=== PATIENT | male | born 1995 | race Caucasian/White ===

== ENCOUNTER 2020-10-31 09:51 | Emergency (ER) | payer MEDICAID ==
--- NOTE | 2020-10-31 10:19 | EDM.PDOC ---
ED HPI GENERAL MEDICAL PROBLEM - General Stated Complaint: SOMETHING IN EYE Time Seen by Provider: 10/31/20 10:00 Source of Information: Reports: Patient History Limitations: Reports: No Limitations - History of Present Illness INITIAL COMMENTS - FREE TEXT/NARRATIVE: Patient presented to the ED because of of saw dust on his rt eye. 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 Right Eye Pain Score (Numeric/FACES): 4 - Related Data Allergies Allergy/AdvReac Type Severity Reaction Status Date / Time No Known Allergies Allergy Verified 10/31/20 11:49 Home Meds: Home Meds NK [No Known Home Meds] 10/31/20 [History] ED ROS GENERAL - Review of Systems Review Of Systems: See Below Constitutional: Reports: No Symptoms HEENT: Reports: No Symptoms Respiratory: Reports: No Symptoms Cardiovascular: Reports: No Symptoms Endocrine: Reports: No Symptoms GI/Abdominal: Reports: No Symptoms : Reports: No Symptoms Musculoskeletal: Reports: No Symptoms Skin: Reports: No Symptoms Neurological: Reports: No Symptoms ED EXAM GENERAL W FULL EYE - Physical Exam Exam: See Below Exam Limited By: No Limitations General Appearance: Alert, No Apparent Distress Eye Exam: Right Eye: Conjunctival Injection, Bilateral Eye: PERRL Ears: Normal External Exam, Normal Canal Nose: Normal Inspection, Normal Mucosa, No Blood Throat/Mouth: Normal Inspection, Normal Lips, Normal Teeth Head: Atraumatic, Normocephalic Neck: Normal Inspection, Supple, Non-Tender Respiratory/Chest: No Respiratory Distress, Lungs Clear Cardiovascular: Normal Peripheral Pulses, Regular Rate, Rhythm, No Edema GI/Abdominal: Normal Bowel Sounds, Soft, Non-Tender, No Organomegaly Course - Vital Signs Text/Narrative:: Procedure: Tetracaine eye drops was instilled on the R eye then stained with fluorescein. There are saw dust particles at the 3 and 6 O'clock position. The right eye was then flashed with an ophthalmic solution. Last Recorded V/S: Last Vital Signs Temp 37.6 C 10/31/20 09:55 Pulse 111 H 10/31/20 09:55 Resp 16 10/31/20 09:55 BP 148/100 H 10/31/20 09:55 Pulse Ox 99 10/31/20 09:55 Departure - Departure Time of Disposition: 10:20 Disposition: Home, Self-Care 01 Condition: Good Clinical Impression: Foreign body of right eye - Discharge Information Instructions: Eye Foreign Body, [id number] Referrals: PCP,None [Primary Care Provider] - Forms: ED Department Discharge Additional Instructions: Please red discharge instructions on foreign body-eye Do not rub your eyes, it will make it swell which is causing the pain Apply ice pack Follow up as needed Sepsis Event Note (ED) - Focused Exam Vital Signs: Vital Signs Temp Pulse Resp BP Pulse Ox 10/31/20 09:55 37.6 C 111 H 16 148/100 H 99
== END 2020-10-31 10:25 | disposition home or self-care (01) ==
LOC: FB.ED 09:51
DX: T15.91XA Foreign body on external eye, part unspecified, right eye, initial encounter (principal)
CPT/HCPCS: 99283

== ENCOUNTER 2021-04-11 20:36 | Emergency (ER) | payer MEDICAID ==
--- NOTE | 2021-04-11 20:54 | EDM.PDOCBH ---
ED HPI GENERAL MEDICAL PROBLEM - General Time Seen by Provider: 04/11/21 20:40 Source of Information: Reports: Patient, Old Records, Police History Limitations: Reports: Altered Mental Status, Combative/Threatening - History of Present Illness INITIAL COMMENTS - FREE TEXT/NARRATIVE: Kendrick was brought by the ambulance and law enforcement, after he sustained self- inflicted cuts to the left forearm. These were NOT in attempts to either harm himself but rather attract attention. He states that his aunt refused to give him back his rings/jewelry, and he did this(cutting) to prove a point. He also endorses that he been off his medications for 2 days. He is a very poor historian,appearing to be a needing to be constantly redirected. He does have a history of psychoactive substance abuse disorder, ADHD, and anxiety. He denies u se of drugs or any use of alcohol tonight. L upper forearm Pain Score (Numeric/FACES): 3 - Related Data Allergies Allergy/AdvReac Type Severity Reaction Status Date / Time No Known Allergies Allergy Verified 10/31/20 11:49 Home Meds: Home Meds ARIPiprazole [Abilify] 10 mg PO DAILY 04/12/21 [History] Mirtazapine 15 mg PO BEDTIME 04/12/21 [History] hydrOXYzine HCL [Hydroxyzine HCl] 25 mg TID PRN 04/12/21 [History] Past Medical History - Past Health History Medical/Surgical History: Denies Medical/Surgical History HEENT History: Reports: Other (See Below) Other HEENT History: Blind in right eye. Social & Family History - Family History Family Medical History: No Pertinent Family History - Caffeine Use Caffeine Use: Reports: None ED ROS GENERAL - Review of Systems Review Of Systems: Comprehensive ROS is negative, except as noted in HPI. ED EXAM, BEHAVIORAL HEALTH - Physical Exam Exam: See Below Exam Limited By: Uncooperative General Appearance: Anxious Nose: Normal Inspection Head: Atraumatic Cardiovascular: No JVD Extremities: Other (2 lacs to the flexor left forearm) ED Add Procedures - Additional/Other Procedure(s) Procedure(s) (Free Text): 2 lacerations on the left forearm were closed primarily by inocente. He declined lidocaine. They measured 5 and 6 cm. COURSE, BEHAVIORAL HEALTH COMP - Course Vital Signs: Last Vital Signs Temp 98.6 F 04/11/21 20:36 Pulse 86 04/12/21 00:07 Resp 18 04/12/21 00:07 BP 129/78 04/12/21 00:07 Pulse Ox 95 04/12/21 00:07 Orders, Labs, Meds: Medications Discontinued Medications Generic Name Dose Route Start Last Admin Trade Name Harvey PRN Reason Stop Dose Admin Ibuprofen 800 mg 04/11/21 21:34 04/11/21 22:00 Ibuprofen 800 Mg Tab PO 04/11/21 21:35 800 mg ONETIME ONE Administration Departure - Departure Time of Disposition: 13:12 Disposition: Home, Self-Care 01 Clinical Impression: Hallucinations, Acute psychosis - Discharge Information Instructions: Persistent Depressive Disorder, Adult, [id number], Laceration Care, Adult, [id number] Referrals: PCP,None [Primary Care Provider] - Forms: ED Department Discharge Additional Instructions: Activity as tolerated. Tylenol or Ibuprofen as needed for pain. Staple removal in 1 week at [facility], call for appt. Follow up with Dr. Verdin as soon as possible regarding depression. - Problem List & Annotations (1) Lacerations of multiple sites of left arm SNOMED Code(s): 146506208, 956402605 Code(s): S41.112A - LACERATION W/O FOREIGN BODY OF LEFT UPPER ARM, INIT ENCNTR Status: Acute Qualifiers: Encounter type: initial encounter Qualified Code(s): S41.112A - Laceration without foreign body of left upper arm, initial encounter (2) Acute psychosis SNOMED Code(s): 83614731400305 Code(s): F23 - BRIEF PSYCHOTIC DISORDER Status: Acute (3) Suicidal intent SNOMED Code(s): 343594372, 826530298 Code(s): R45.851 - SUICIDAL IDEATIONS Status: Acute - Problem List Review Problem List Initiated/Reviewed/Updated: Yes - Assessment/Plan Plan: He declined testing. Machelle did an assessment. He is low risk,will DC home to see his Psychiatrist next week.
[2021-04-11] MEDS ORDERED: Ibuprofen 800 MG Tab PO ONE (21:34)
== END 2021-04-12 00:30 | disposition home or self-care (01) ==
LOC: FB.ED 20:36
DX: S51.812A Laceration without foreign body of left forearm, initial encounter (principal); F23 Brief psychotic disorder; Z79.899 Other long term (current) drug therapy; X78.8XXA Intentional self-harm by other sharp object, initial encounter
CPT/HCPCS: 12004; 99285-25; A9270-GY